=== PATIENT | female | born 1955 ===

== ENCOUNTER 2022-03-01 11:15 | Inpatient (IN) | payer OTHER ==
[~2022-03-01] VITALS: Ht 172.7 cm; Wt 64.9 kg
[2022-03-02] MEDS ORDERED: METHYLPREDNISOLO8 MG PO (08:10)
[2022-03-02] MEDS ORDERED: CELLCEPT500 MG PO (08:11)
[2022-03-02] MEDS ORDERED: PLAQUENIL PO (08:11)
[2022-03-02] MEDS ORDERED: COZAAR100 MG PO (08:12)
[2022-03-02] MEDS ORDERED: CRESTOR10 MG PO (08:12)
[2022-03-02] MEDS ORDERED: CARDIZEM30 MG PO (08:12)
[2022-03-02] MEDS ORDERED: GABAPENTIN300 M2 PO (08:13)
[2022-03-02] MEDS ORDERED: GAS RELIEF125 MG PO (08:13)
[2022-03-02] MEDS ORDERED: PEPCID40 MG PO (08:13)
[2022-03-02] MEDS ORDERED: CARAFATE1 GM PO (08:13)
[2022-03-05] MEDS ORDERED: HYDROXYCHLOROQ200 MG (13:18)
[2022-03-10] MEDS ORDERED: OXYCODONE HCL5 MG PO (10:11)
[2022-03-10] MEDS ORDERED: HYOSCYAMINE0.125 M1 SL (10:11)
== END 2022-03-10 12:57 | disposition home or self-care (01) | DRG 330 ==
LOC: O/R 03-05 09:41 → SURH 03-05 11:15
PROVIDERS: ADMIT Surgery; ATTEND Surgery
PROC: 07BB4ZZ Excision of Mesenteric Lymphatic, Percutaneous Endoscopic Approach (ICD-10-PCS; 2022-03-05)
PROC: 07BC4ZZ Excision of Pelvis Lymphatic, Percutaneous Endoscopic Approach (ICD-10-PCS; 2022-03-05)
PROC: 8E0ZXY6 Isolation (ICD-10-PCS; 2022-03-05)
PROC: 0DTF4ZZ Resection of Right Large Intestine, Percutaneous Endoscopic Approach (ICD-10-PCS; principal; 2022-03-05 16:15)
DX: D12.2 Benign neoplasm of ascending colon (principal); D84.821 Immunodeficiency due to drugs; K57.30 Diverticulosis of large intestine without perforation or abscess without bleeding; M32.9 Systemic lupus erythematosus, unspecified; I11.9 Hypertensive heart disease without heart failure; E78.5 Hyperlipidemia, unspecified; Z79.52 Long term (current) use of systemic steroids; D64.9 Anemia, unspecified; K29.70 Gastritis, unspecified, without bleeding; K21.9 Gastro-esophageal reflux disease without esophagitis

== ENCOUNTER → 2024-10-06 07:14 | Outpatient (CLI) | payer OTHER ==
[~2024-10-06 07:14] MED LIST: CARAFATE1 GM PO; CARDIZEM30 MG PO; CELLCEPT500 MG PO; COZAAR100 MG PO; CRESTOR10 MG PO; GABAPENTIN300 M2 PO; GAS RELIEF125 MG PO; HYDROXYCHLOROQ200 MG; HYOSCYAMINE0.125 M1 SL; METHYLPREDNISOLO8 MG PO; OXYCODONE HCL5 MG PO; PEPCID40 MG PO; PLAQUENIL PO
== END | disposition home or self-care (01) ==
LOC: NUCLEAR 09-25 07:00
PROVIDERS: ATTEND Internal Medicine
DX: I20.9 Angina pectoris, unspecified (principal)